=== PATIENT | male | born 1950 | race Caucasian/White ===

== ENCOUNTER → 2025-05-22 | Outpatient (CLI) | payer MEDICARE, SELFPAY ==
[2025-05-22 22:16] LABS: Hematocrit 42.1 % (40-54); Hemoglobin 14.7 g/dL (13.0-16.5); Immature Granulocytes Count 0.010 X10^3/uL (0.0-0.0); Mean Corp Hgb Conc 34.9 g/dL (32-36); Mean Corpuscular Volume 93.6 fL (80-94); Mean Platelet Vol. 9.8 fl (6.2-12.0); NRBC Flagged by Analyzer 0 % (0-5); Platelet Count 268 K/mm3 (150-450); RBC Distribution Width CV 11.9 % (11.6-14.6); RBC Distribution Width SD 41.1 fl (35.1-43.9); Red Blood Count 4.50 M/mm3 (4.6-6.2); White Blood Count 5.7 K/mm3 (4.4-11.0)
[2025-05-22 22:50] LABS: Albumin, Serum 4.3 g/dL (3.4-4.8); BUN 14 mg/dL (4-19); BUN/Creat Ratio 13.9 RATIO (10-20); Glucose 101 mg/dL (70-99)
[2025-05-22 22:51] LABS: AST(SGOT) 26 U/L (<=37); Alanine Aminotransfer ALT/SGPT 23 U/L (<=46); Alkaline Phosphatase 71 U/L (40-129); Anion Gap 12 (5-15); Calcium,Total 9.9 mg/dL (7.6-11.0); Carbon Dioxide 22.9 mmol/L (21.0-32.0); Chloride 104 mmol/L (98-108); Cholesterol 183 mg/dL (<=200); Globulin 3.7 g/dL (2.2-4.2); Low Density Lipoprotein Calc. 126 mg/dL; PSA,Total - Annual Screen 2.04 ng/mL (0.02-4.00); Potassium 4.4 mmol/L (3.3-5.1); Triglycerides 124 mg/dL; Very Low Density Lipoprotein 25 mg/dL (5-40); cholesterol:hdl ratio screen 5.24
== END | disposition home or self-care (01) ==
PROVIDERS: PCP Nurse Practitioner; Referring Provider Nurse Practitioner; Visit Provider Nurse Practitioner
DX: Z00.00 Encounter for general adult medical examination without abnormal findings (principal); J45.909 Unspecified asthma, uncomplicated; R01.1 Cardiac murmur, unspecified; R35.0 Frequency of micturition; E78.00 Pure hypercholesterolemia, unspecified
CPT/HCPCS: 80053; 80061; 84153; 85025; G0103